=== PATIENT | male | born 1950 | race Caucasian/White ===

== ENCOUNTER → 2016-10-06 | Day surgery (SDC) | payer MEDICARE, OTHER ==
[~2016-10-06] VITALS: Ht 180.3 cm; Wt 82.8 kg
[~2016-10-06] MED LIST: ACETAMINOPHEN 1000 MG/100 ML VIAL IV ONE; ACETAMINOPHEN/HYDROcodone 325 MG/10 MG TAB ONE; AMPICILLIN-SULBACTAM INJ 3 GM VIAL ONE; BACITRACIN TOP OINT 15 GM TUBE ONE; BP MED PO; DEXAMETHASONE SOD PHOS 4 MG/ML VIAL ONE; FAMOTIDINE 20 MG/2 ML VIAL ONE; HYDR-3516 PO; LACTATED RINGER'S 1000 ML INJ 1,000 ML IV ONE; LACTATED RINGER'S 1000 ML INJ 1,000 ML ONE; LIDOCAINE 1%/EPINEPHrine 1:100,000 SOLN 30 ML VIAL ONE; MIDAZOLAM HCL 2 MG/2 ML VIAL ONE; MORPHINE SULFATE 4 MG/ML INJ ONE; OXYMETAZOLINE HCL 0.05% 15 ML NASAL SPRAY ONE; PHENYLEPH/NS 1000 MCG/10 ML SYR IV ONE; PROPOFOL 200 MG/20 ML AMP IV ONE; ROSU10 PO; SODIUM CHLORIDE 0.9% INJ 100 ML ONE; TRAM-388 PO; [UNRECOGNIZED DRUG - OTHER] PO; ePHEDrine/NS 25 MG/5 ML SYR IV ONE
[2016-10-06 12:18] VITALS: PULSE 117; TEMP 97.8
[2016-10-06 13:15] VITALS: PULSE 98
[2016-10-06 14:00] VITALS: BP 144/83; PULSE 108; RESP 14; O2SAT 95
--- NOTE | 2016-10-07 18:53 | EKG ---
Date Performed: 10/06/2016 Time Performed: 08:34:52 PTAGE: 66 years EKG: Sinus rhythm with borderline 1st degree A-V block. Right bundle branch block Inferior/lateral T wave changes are nonspecific Abnormal ECG NO PREVIOUS TRACING DOCTOR: Anthony Naidu Interpretating Date/Time 10/07/2016 18:48:21
--- NOTE | 2016-10-26 14:59 | MP ---
cc: ALESSIA MAYS M.D. DATE OF SURGERY: October 06, [address] Alessia Mays. PREOPERATIVE DIAGNOSIS 1. Chronic pansinusitis. 2. Sinonasal polyposis. 3. Nasal septal deviation. 4. Nasal airway obstruction. 5. Hypertrophy of inferior turbinates. POSTOPERATIVE DIAGNOSIS 1. Chronic pansinusitis. 2. Sinonasal polyposis. 3. Nasal septal deviation. 4. Nasal airway obstruction. 5. Hypertrophy of inferior turbinates. OPERATION PERFORMED 1. Open repair nasal septal fracture. 2. Bilateral submucosal resection of inferior turbinates. 3. Bilateral endoscopic total ethmoidectomy. 4. Bilateral endoscopic maxillary antrostomy with debridement of maxillary sinus contents. 5. Bilateral endoscopic exploration of frontal sinus duct with balloon sinus dilation. 6. Bilateral endoscopic sphenoidotomy with debridement of sphenoid sinus contents. INDICATIONS The indications are documented in the history and physical. DESCRIPTION OF OPERATION The patient was taken to OR #2 and placed in the supine position. Following induction of general anesthesia and intubation the nose was packed bilaterally with cotton pledgets saturated in 0.05% Oxymetazoline and the nasal septum and inferior turbinates were injected with a total of 12 mL of 1% Xylocaine with epinephrine 1:100,000. He was then prepped and draped for surgery. Nasal packing was removed and a muna-transfixion incision was made in the left nasal vestibule and through this incision the mucosa of septum was elevated bilaterally as far as the rostrum of the sphenoid. Next, a cumulative area of 2 x 2.5 cm of the quadrangular cartilage were removed. This was very thick and irregularly deviated with evidence of old long healed septal fracture segments. These were removed in a piecemeal fashion using a Yuridia elevator and Chau Quinonez forceps. Next, the remainder of mucosa was elevated from the bony septum and this was removed using Chau Quinonez forceps and [place] septal forceps. The maxillary crest was then verified to be free of mucosal contact and it was removed using a 6-mm Jose chisel. The incision was then closed with a running suture of 4-0 chromic and the mucosal layers of septum were approximated to each other with a quilting stitch of 4-0 plain gut. The remainder the operation was completed using endoscopic visualization. Additional injections of lidocaine and epinephrine were made into the attachments of the middle turbinates as well as the uncinate processes and the anterior and posterior ethmoid cells bilaterally. The left side was addressed first beginning with amputation of middle turbinate using through cutting Blakesley forceps and the power microdebrider. This was followed by uncinectomy and exenteration of the anterior and posterior ethmoids using blunt and power dissection. On this side there was a large accumulation of polypoid tissue which was prolapsing from the middle meatus and into the nasal vault. This originated in the infundibulum and in the anterior ethmoids. This was included in the specimen labeled left sinus contents. The dissection was carried back as far as the rostrum of the sphenoid on the left side. Next, the maxillary ostium was addressed. This was probed using a 3-mm olive tipped suction and then the ostium was enlarged using Stammberger forceps and a power microdebrider. Additional polypoid tissue was debrided from this cavity. Next, the sphenoid ostium was probed using a #10 suction. It was bluntly penetrated and then enlarged using the power debrider. The cavity was debrided of inflamed mucosa and mucopurulent material using a 0 degree scope, the suction and Blakesley forceps. This was also included in the specimen labeled left sinus contents. This left side was then packed with cotton pledgets saturated in Oxymetazoline while the right side was addressed in the same fashion beginning with amputation of the middle turbinate followed by uncinectomy and exenteration of the anterior and posterior ethmoids. The polypoid tissue was less heavy on this side and the dissection was carried back as far as the rostrum of the sphenoid. The maxillary ostium was then probed and enlarged using the Stammberger forceps and the power debrider and the cavity was debrided of inflamed mucosa. The sphenoid ostium was also then bluntly penetrated and enlarged with the power debrider and the cavity was debrided of its contents. This side was then irrigated and suctioned, it was also packed with cotton pledgets saturated in Oxymetazoline. These remained in place while the balloon dilation was completed on the frontal sinuses. The left side was addressed first. The guidewire was advanced up into the frontal duct and verified to be in the frontal sinus cavity. The balloon was then advanced over the wire and inflated to a pressure of 12 atmospheres at the superior limit of the mid point of the duct and also at the junction of the duct with the ethmoid cells. The balloon was then removed and the duct was debrided of fragments of bone and soft tissue, was verified patent all the way into the frontal sinus. The right frontal duct and sinus were then operated in the same fashion. Lastly the inferior turbinates were addressed. These were fractured out medially and stab incisions were opened along their inferior surfaces. Through these incisions the submucosal soft tissue was reduced using a curette and preserving the conchal bone. The incisions were then cauterized using the suction Bovie at 35 ivy and then remnants of the inferior turbinates and then re-lateralized to the lateral nasal wall. When this was completed the packing was removed from the ethmoid cavities. They were then filled with Stammberger sinus foam on both sides. The inferior of the nasal vault was then packed with Merocel tampons coated in bacitracin ointment and procedure was terminated. The patient was reversed from anesthesia and taken to recovery in good condition. There were no complications. Blood loss was 300 mL. MD GABRIELLE Mcdermott/TLL /10:39 AM /2:43 PM
== END | disposition home or self-care (01) ==
LOC: PHSDC 06:26
PROVIDERS: ATTEND Otolaryngology
DX: J32.4 Chronic pansinusitis (principal); J33.9 Nasal polyp, unspecified; J34.2 Deviated nasal septum; J34.89 Other specified disorders of nose and nasal sinuses; J34.3 Hypertrophy of nasal turbinates; S02.2XXS Fracture of nasal bones, sequela; J32.2 Chronic ethmoidal sinusitis; I45.10 Unspecified right bundle-branch block
CPT/HCPCS: 00160; 21336; 30140; 31255; 31267; 31288; 31296; 88304; 88305; 88311; 93005; J0131; J0295; J1100; J2250; J2270; J2370; J3010; J7120